=== PATIENT | female | born 1935 | race African-American/Black ===

== ENCOUNTER 2020-12-18 05:29 | Emergency (ER) | payer OTHER ==
[~2020-12-18] VITALS: Ht 160 cm; Wt 78.0 kg
[2020-12-18] MEDS ORDERED: LIDODERM1 EACH TOP (09:42)
[2020-12-18 09:50] VITALS: BP 133/80
== END 2020-12-18 09:50 | disposition home or self-care (01) ==
LOC: EDBD 05:29 → ER 05:29
DX: G89.29 Other chronic pain (principal); M54.5 Low back pain; I10 Essential (primary) hypertension; E78.5 Hyperlipidemia, unspecified; Z90.49 Acquired absence of other specified parts of digestive tract